=== PATIENT | male | born 1955 | race Caucasian/White ===

== ENCOUNTER 2018-04-21 21:56 | Inpatient (IN) ==
[2018-04-21 22:15] LABS: BASO# 0.02 X1000 (0.0-0.2); BASO% 0.3 % (0.0-0.8); EOS# 0.05 X1000 (0.0-0.7); EOS% 0.6 % (0.0-10.0); HEMATOCRIT 32.3 % (42.0-52.0); HEMOGLOBIN 10.3 g/dL (14.0-18.0); IMM GRAN# 0.01 X1000 (0.0-0.04); IMM GRAN% 0.1 % (0.0-0.5); LYMPH# 1.29 X1000 (1.2-3.4); LYMPH% 16.3 % (20.5-51.1); MCH 24.5 PG (27-31); MCHC 31.9 g/dL (33-37); MCV 76.9 FL (81-99); MONO# 0.62 X1000 (0.11-0.59); MONO% 7.8 % (1.7-9.3); MPV 9.1 FL (7.4-10.4); NEUT# 5.93 X1000 (1.4-6.5); NEUT% 74.9 % (42.2-75.2); PLT 321 X1000 (130-400); WBC 7.92 X1000 (4.8-10.8)
[2018-04-21 22:26] LABS: INR 1.01; PROTIME 13.8 Seconds (11.0-16.0)
[2018-04-21 22:27] LABS: PTT 39.5 Seconds (22.3-41.8)
[2018-04-21] MEDS ORDERED: G.I. COCKTAIL PO ONE (22:38)
[2018-04-21 22:43] LABS: AGAP 12; ALBUMIN 3.1 g/dL (3.5-5.0); ALKALINE PHOSPHATASE 89 U/L (32-122); BUN 8 mg/dL (8-22); CALCIUM 8.9 mg/dL (8.8-10.2); CHLORIDE 94 mmol/L (98-107); CK PROFILE 75 U/L (24-204); COSMO 273; CREATININE 1.1 mg/dL (0.7-1.2); ESTIMATED GFR > 60; GLUCOSE 140 mg/dL (70-104); GOT 11 U/L (10-34); GPT < 5 U/L (10-44); POTASSIUM 2.7 mmol/L (3.5-5.1); SODIUM 136 mmol/L (136-145); TCO2 31 mmol/L (25-35); TOTAL PROTEIN 8.5 g/dL (6.3-8.3)
[2018-04-21] MEDS ORDERED: MORPHINE IV ONE (23:06)
[2018-04-21] MEDS ORDERED: ZOFRAN IV ONE (23:06)
[2018-04-21] MEDS ORDERED: POTASSIUM CHLORIDE 20 MEQ/SWI 20 MEQ/100 ML IVPB IV ONE (23:09)
[2018-04-21] MEDS ORDERED: LR 1,000 ML ONE (23:27)
[2018-04-21] MEDS ORDERED: LR 250 ML IV ONE (23:27)
[2018-04-22] MEDS ORDERED: LOPRESSOR PO ONE (01:45)
[2018-04-22] MEDS ORDERED: TYLENOL PO PRN ×2 (01:56→15:25)
[2018-04-22] MEDS ORDERED: ZOFRAN IV PRN ×2 (01:56→15:26)
--- NOTE | 2018-04-22 01:56 | PROVIDER DOCUMENTATION ---
This chart was entered by Marie Uribe Scribe, acting as scribe for Socrates Mcnulty MD. HPI-Abdominal Pain/GI Problem - General Chief Complaint: Chest Pain Stated Complaint: chest pain Time Seen by Provider: 04/21/18 22:17 Source: patient Allergies/Adverse Reactions: Patient Allergies Allergy/AdvReac Type Severity Reaction Status Date / Time zolpidem tartrate * Allergy Intermediate "makes him Verified 04/21/18 22:00 [From Kory] shai" hydrocodone Allergy Unknown ITCHING Verified 04/21/18 22:00 Home Medications: Home Medication List Medication Instructions Recorded Confirmed Last Taken Type Allopurinol 150 mg PO DAILY 02/12/13 04/22/18 Unknown History Pantoprazole Sodium [Protonix] 40 mg PO DAILY 02/12/13 04/22/18 Unknown History Carvedilol 6.25 mg PO BID 01/23/18 04/22/18 Unknown History LISINOpril [Prinivil] 10 mg PO DAILY 01/23/18 04/22/18 Unknown History Sertraline HCl 100 mg PO DAILY 01/23/18 04/22/18 Unknown History PRAVAstatin [Pravachol] 80 mg PO QHS 04/22/18 04/22/18 Unknown History Trazodone HCl 75 mg PO QHS 04/22/18 04/22/18 Unknown History - History of Present Illness-ABD Nature of Presenting Problems: Pt is 62/m presenting to ED w/ substernal c/p this started this evening. Pt has hx of esophogeal spasm Severity in ED: reports: moderate Onset/Duration: reports: 4-6 hours ago Timing: reports: still present Review of Systems - Adult - REVIEW OF SYSTEMS - ADULT Constitutional: reports: no symptoms reported Eyes: reports: no symptoms reported Ears, Nose, Mouth & Throat: reports: no symptoms reported Cardiovascular: reports: chest pain Respiratory: reports: no symptoms reported Gastrointestinal: reports: no symptoms reported Genitourinary: reports: no symptoms reported Musculoskeletal: reports: no symptoms reported Integumentary: reports: no symptoms reported Neurological: reports: no symptoms reported Psychiatric: reports: no symptoms reported Endocrine: reports: no symptoms reported Hematologic/Lymphatic: reports: no symptoms reported Allergic/Immunologic: reports: no symptoms reported All Other Systems: Reviewed and Negative Past History - Adult - PAST MEDICAL HISTORY-ADULT Review of Records: reports: Nursing Assessment Review Major Childhood Illnesses: reports: denies history Cardiovascular: reports: denies history Respiratory: reports: denies history Gastrointestinal: reports: denies history Obstetrical/Gynecological: reports: denies history Genitourinary: reports: denies history Musculoskeletal: reports: denies history Neurological: reports: denies history Endocrine/Immune: reports: denies history Other Conditions: reports: denies history - PRIOR SURGERIES/PROCEDURES Surgical/Procedure History: reports: CABG - IMMUNIZATION STATUS Childhood Immunizations: See Nurse Assessment Flu Vaccine: See Nurse Assessment - FAMILY HISTORY Family History: reviewed, not pertinent Physical Exam-General - PHYSICAL EXAM-ADULT Initial Vital Signs Reviewed: Yes - CONSTITUTIONAL General Appearance: alert, moderate distress, other (frail) - EYES Eyes: PERRL/EOMI, pink conjunctivae - HEAD, EARS, NOSE, MOUTH & THROAT HENMT: normocephalic/atraumatic, moist mucous membranes - NECK Neck: non-tender, full range of motion - RESPIRATORY Respiratory: lungs clear, decreased breath sounds. negative: rhonchi, wheezing - CARDIOVASCULAR Cardiovascular: normal peripheral pulses, regular rate, rhythm - GASTROINTESTINAL (ABDOMEN) Abdominal Exam: normal bowel sounds, non tender, soft - MUSCULOSKELETAL Extremity: normal range of motion, non-tender - SKIN Integumentary: normal color, normal turgor - NEUROLOGIC Neurologic: grossly normal, no motor/sensory deficits - PSYCHIATRIC Psych/Mental Status: oriented x 3 Progress - PLAN OF CARE/RESULTS Progress/Plan/Lab Results: Vital Signs - 8 hr 04/21/18 21:56 Temperature 98.0 F Pulse Rate 84 Respiratory Rate 22 Blood Pressure 193/105 O2 Sat by Pulse Oximetry 99 Laboratory Results - last 24 hr 04/21/18 04/21/18 04/21/18 22:00 22:00 22:00 WBC 7.92 RBC 4.20 L Hgb 10.3 L Hct 32.3 L MCV 76.9 L MCH 24.5 L MCHC 31.9 L RDW Std Deviation 14.0 Plt Count 321 MPV 9.1 Immature Gran % (Auto) 0.1 Neut % (Auto) 74.9 Lymph % (Auto) 16.3 L Mcmullen % (Auto) 7.8 Eos % (Auto) 0.6 Baso % (Auto) 0.3 Immature Gran # (Auto) 0.01 Neut # (Auto) 5.93 Lymph # (Auto) 1.29 Mcmullen # (Auto) 0.62 H Eos # (Auto) 0.05 Baso # (Auto) 0.02 PT 13.8 INR 1.01 PTT (Actin FS) 39.5 Troponin T < 0.010 Orders Category Date Time Status Cardiac Monitoring DIRECTED Care 04/21/18 22:01 Active Oxygen Therapy- ED Nursing DIRECTED Care 04/21/18 22:01 Active Saline Loc NOW Care 04/21/18 22:01 Active CHEST-2 VIEWS [RAD] Stat Exams 04/21/18 22:01 Ordered CBC WITH ELECTRONIC DIFF [HEME] Stat Lab 04/21/18 22:00 Completed CK PROFILE [SP CHEM] Stat Lab 04/21/18 22:00 Received COMPREHENSIVE METABOLIC PANEL [CHEM] Stat Lab 04/21/18 22:00 Received PRO B-NATRIURETIC PEPTIDE Stat Lab 04/21/18 22:00 Received PROTIME WITH INR [COAG] Stat Lab 04/21/18 22:00 Completed PTT [COAG] Stat Lab 04/21/18 22:00 Completed TROPONIN T Stat Lab 04/21/18 22:00 Completed CP/SOB/Palp >45 yrs of Age Stat Oth 04/21/18 22:01 Ordered EKG [EKG] Stat Ther 04/21/18 21:57 Ordered Result Diagrams: 04/21/18 22:00 04/21/18 22:00 - REASSESSMENT Reassessment #1 Time Reassessed: 01:47 Status: other (patient still with some chest pain , even though it has decreased; Heart score: 5; patient have CT angiogram of chest) - EKG 1 Time of EKG reading by physician:: 22:00 EKG Read and Signed by:: Joesph Sultana EKG Interpretation (*Must complete 3 of following elements*): Abnormal (normal sinus rhythm, possible left atrial enlargement, Left anterior fascicular block, Left ventricular hypertrophy, Abnormal ECG) Rate: 79 Rhythm: sinus rhythm Umbarger: normal QRS: normal NE Interval: normal - CT/MRI 1 CT Study: Angiogram Impression: Abnormal Comparison with other Films: no prior study (No pulmonary embolism. 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 Correlation to MRI of the thoracuc spine with and without IV contrast is recommended. Mild to moderate sized hiatal hernia) - CONSULTS/PCP/HOSPITALIST Notification #1 *Consult/PCP/Hospitalist*: Dr. Ma Time Discussed: 01:55 Consult Disposition: Admit Departure - Departure Date of Disposition Decision: 04/22/18 Time of Disposition Decision: 01:56 DIAGNOSIS: Hypokalemia Chest pain Qualifiers: Chest pain type: unspecified Qualified Code(s): R07.9 - Chest pain, unspecified Disposition: ADMITTED INPATIENT 09 Certified Medical Emergency: Emergent Condition: Fair - Critical Care Note This patient required my direct & personal management of CC.: No Attestation - Physician/ CLOVER Attestation Patient care was provided by Advanced Practice Provider:: No The physician spent face to face time with patient:: Yes Advanced Practice Provider documentation review:: Supervising physician onsite and consulted in the evaluation and care of this patient. The physician did have a face to face encounter with the patient. This chart was documented by the indicated scribe, (Marie Uribe, Scribe) and accurately reflects the services I performed and decisions made by , Socrates Mcnulty MD, as attested by the provider's signature.
[2018-04-22] MEDS ORDERED: SOLU-MEDROL IV ONE (03:44)
[2018-04-22] MEDS ORDERED: VANCOMYCIN IV PER PHARMACY MISC SCH ×2 (04:00→15:30)
[2018-04-22] MEDS ORDERED: VANCOMYCIN 1 GM/NS 1 GM/250 ML IVPB IV ONE (04:00)
[2018-04-22] MEDS: PERCOCET-5 PO PRN ×4 (04:11→21:34)
--- NOTE | 2018-04-22 07:37 | Diag Imaging Result Doc PS360 ---
EXAM: CHEST-PORTABLE 04/21/2018 HISTORY: shortness of breath TECHNIQUE: Erect AP portable at 2317 COMMENT: There is no evidence of acute cardiac or pulmonary disease. Considering differences in inspiration and technique there has been no significant change since 01/23/2018. IMPRESSION: No acute disease. Electronically signed by Barry Elam 04/22/2018 7:35 AM
[2018-04-22] MEDS ORDERED: VANCOMYCIN 750 MG in NS 150 ML IV ONE (08:00)
--- NOTE | 2018-04-22 08:29 | EKG Report ---
Test Performed on : 04/21/2018 10:00:16 PM Test Reason : Chest Pain Blood Pressure : / mmHG Vent. Rate : 079 BPM Atrial Rate : 079 BPM P-R Int : 140 ms QRS Dur : 110 ms QT Int : 416 ms P-R-T Axes : 073 -63 040 degrees QTc Int : 477 ms Normal sinus rhythm. Possible Left atrial enlargement Left anterior fascicular block Left ventricular hypertrophy Abnormal ECG When compared with ECG of 23-JAN-2018 17:35, No significant change was found Unconfirmed Result
[2018-04-22] MEDS ORDERED: PROTONIX PO SCH (09:00)
[2018-04-22] MEDS ORDERED: ZYLOPRIM PO SCH (09:00)
[2018-04-22] MEDS ORDERED: COREG PO SCH (09:00)
[2018-04-22] MEDS ORDERED: PRINIVIL PO SCH (09:00)
[2018-04-22] MEDS ORDERED: ZOLOFT PO SCH (09:00)
--- NOTE | 2018-04-22 12:01 | Diag Imaging Result Doc PS360 ---
EXAM: TEMPORARY 04/22/2018 HISTORY: Chest pain TECHNIQUE: CT pulmonary angiogram with 3-D MIPS COMMENT: There are no filling defects in the pulmonary arteries. There is no evidence of aortic dissection or aneurysm. There is a hiatal hernia. There is some mucosal thickening present in the distal esophagus and an air-fluid level is present in the mid esophagus. There is thickening of the esophagus and paraesophageal fat infiltration in the area of the superior mediastinum. The abnormal soft tissue density extends on both sides of the upper thoracic spine to about the level of the aortic arch. There is ill-defined sclerosis in the vertebral bodies of T2 and T3 and to some extent T4. There are is some erosion of the lower endplate of T2 particularly on the left side. There is bridging osteophyte formation at L3-4. 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 There is a linear opacity in both lower lobes consistent with atelectasis or fibrosis. There is increased interstitial markings in both apices there is a noncalcified pulmonary nodule in the right upper lobe on image 50 measuring almost 9 mm in diameter. There is a 19 mm aorticopulmonary window node and a precarinal node measuring over 18 mm in diameter. Several paratracheal nodes are present. There is an old fracture of the left fifth rib there are degenerative changes in the shoulders bilaterally. IMPRESSION: 1. Apparent discitis at T2-3 with paravertebral inflammatory changes. This may affect the adjacent esophagus. Alternatively, the possibility of neoplastic disease in the esophagus extending into the paravertebral spaces and upper thoracic spine cannot be excluded. Endoscopic evaluation of the esophagus is recommended. The possibility of osteomyelitis or epidural abscess cannot be excluded on the basis of this study and further evaluation with MRI may be desirable. 2. Interstitial opacity in both upper lung zones which may be related to pleural involvement with the above process. 3. Noncalcified pulmonary nodule in the right upper lobe. 4. Hiatal hernia. Electronically signed by Barry Elam 04/22/2018 11:59 AM
--- NOTE | 2018-04-22 14:04 | HISTORY AND PHYSICAL ---
CHIEF COMPLAINT: Esophageal spasms and substernal chest pain. HISTORY OF PRESENT ILLNESS: This is a 62-year-old gentleman with a history of hypertension, coronary artery disease, alcohol use and abuse, Luis esophagus and esophageal varices. He presents to the emergency room complaining of about 6 hours of esophageal spasm and pain. He states pain is in his epigastric area to about midsternum. He states that this is chronic. He has this pain daily although prior to coming to the emergency room it was "stronger than it has been in a while." He denied any nausea, vomiting, any black or bloody vomitus or stools, any syncope, dizziness, palpitations. PAST MEDICAL HISTORY: 1. Hypertension. 2. CAD status post coronary artery bypass graft with subsequent stents. 3. Alcohol use and abuse. 4. High cholesterol. 5. Luis esophagus. 6. Esophageal varices. PAST SURGICAL HISTORY: Coronary artery bypass graft. SOCIAL HISTORY: He does drink whiskey daily. He smokes about a half pack of cigarettes a day. He denies any illicit drug use. ALLERGIES: Ambien which makes him crazy and hydrocodone which causes itching. HOME MEDICATIONS: 1. Trazodone 50 mg p.o. at bedtime. 2. Zoloft 100 mg p.o. daily. 3. Pantoprazole 40 mg p.o. daily. 4. Lisinopril 10 mg p.o. daily. 5. Carvedilol 6.25 mg b.i.d. REVIEW OF SYSTEMS: Discussed with the patient with pertinent positives stated in the HPI. He denied any syncope, dizziness, any chest pain, palpitations, any nausea, vomiting, diarrhea, constipation, any black or bloody vomitus or stools, any hematuria, dysuria, frequency, or urgency. PHYSICAL EXAMINATION: GENERAL: This is a 62-year-old gentleman who is lying in the bed in no distress. VITAL SIGNS: Blood pressure is 169/80 with a heart rate of 52, respirations are 18, temperature is 97.7 degrees oral with O2 saturations of 100% on 2 L nasal cannula. HEENT: Pupils are equal, round, react to light. EOMs are intact. Sclerae are anicteric. Head is normocephalic, atraumatic. Mucous membranes are moist. NECK: Supple with trachea midline. CARDIOVASCULAR: Regular rate and rhythm. S1 and S2 are appreciated. No murmurs. Calves are nontender to palpation. He has peripheral pulses palpable x4 extremities. PULMONARY: Breath sounds are decreased throughout. Chest rises and falls symmetric with respiration. Chest wall is nontender to palpation. GASTROINTESTINAL: Abdomen soft, nontender, nondistended with bowel sounds in all 4 quadrants. SKIN: Warm and dry with normal turgor. NEUROLOGIC: He is alert and oriented x3. LABS: WBC is 7.9 with a hemoglobin of 10.3, hematocrit 32.3, platelets of 321,000. INR is 1.01 with a D-dimer of 2.17. Sodium is 136, potassium 2.7, BUN 8, creatinine 1.1 with a glucose of 140. Troponin was negative. Chest x-ray revealed no acute disease. CTA pulmonary is pending. ASSESSMENT: This is a 62-year-old gentleman who is lying in the bed with family members present in no distress. 1. Esophageal pain. 2. Coronary artery disease status post coronary artery bypass graft with subsequent stents. 3. Elevated cholesterol. 4. Alcohol use and abuse. 5. History of esophageal varices. 6. Hypokalemia. 7. Elevated D-dimer. PLAN: The patient has been admitted to the medical-surgical floor and placed on telemetry which will continue. healthy heart diet. identify his home medications and continue these as is appropriate. Will repeat a potassium and trend electrolytes replete as is appropriate. Bilateral lower extremity doppler. Further treatments pending hospital course. Dictated by ALYCIA Catherine for Shaun Ma MD This chart was documented by, ALYCIA Catherine and accurately reflects the services performed, treatment plan and medical decisions as attested by the providers signature Shaun Ma MD. cc: ALYCIA Catherine MD MTDD
[2018-04-22] MEDS ORDERED: PERCOCET-5 PO PRN (15:26)
[2018-04-22] MEDS: PROTONIX IV SCH (15:54)
[2018-04-22] MEDS ORDERED: DESYREL PO SCH (21:00)
[2018-04-22] MEDS: DESYREL PO SCH (23:18)
[2018-04-22] MEDS: CARAFATE LIQUID PO SCH (23:18)
[2018-04-22] MEDS: COREG PO SCH (23:19)
[2018-04-22] MEDS: VANCOMYCIN 1,250 MG in NS 250 ML IV SCH (23:21)
--- NOTE | 2018-04-22 23:31 | HISTORY AND PHYSICAL ---
ADDENDUM: Patient seen and examined by myself. Full note dictated and discussed with nurse practitioner. Patient presented to the hospital with chest pain although notes that his pain is better. He does have an elevated D-dimer, but CT was negative for pulmonary emboli. Blood pressures are elevated. Patient unfortunately has a long history of alcoholism. CT is abnormal. Certainly appears as though he could have cancer causing his current symptoms. We will continue to follow. I have reviewed the CT scan with Radiology. We will attempt to transfer him to [facility] for upper endoscopy. cc: Shaun Ma MD
--- NOTE | 2018-04-22 23:41 | GASTROENTEROLOGY CONSULTATION ---
DATE: 04/22/2018 REQUESTING PHYSICIAN: Dr. Ma. REASON FOR CONSULTATION: Esophageal spasm. HISTORY OF PRESENT ILLNESS: Mr. Shannon is a 62-year-old male who was admitted on 04/22/2018 for substernal chest pain. He has history of reflux disease since . He has history of Luis esophagus diagnosed in the late . His last EGD was done a couple of years ago at [facility]. According to the patient and patient's family, he was told that the esophagus looked good. At that time, he also required cholecystectomy at [facility]. The patient during this admission had imaging done in the form of CTA which showed possibility of mucosal thickening in the distal esophagus and an air-fluid level present in the mid esophagus. There was evidence of thickening of the esophagus and paraesophageal fat infiltration in the area of superior mediastinum. In the CT scan report, there was evidence of ill-defined sclerosis in the vertebral bodies of T2 and T3 and to some extent T4. 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 He also was noted to have an interstitial opacity in both upper lung zones which may be related to pleural involvement with the above process. There was evidence of noncalcified pulmonary nodule in the right upper lobe and a hiatal hernia. Gastroenterology was consulted for further management. PAST MEDICAL HISTORY: 1. Hypertension. 2. Reflux disease. 3. Luis esophagus. Esophageal varices. 4. History of alcohol abuse. He quit about 4 weeks ago. 5. History of coronary artery disease, status post CABG with subsequent stent. 6. Hiatal hernia. 7. High cholesterol. PAST SURGICAL HISTORY: 1. Coronary artery bypass graft. 2. Cholecystectomy. 3. EGDs. 4. Colonoscopy. SOCIAL HISTORY: He drinks whiskey daily. His last intake was 4 weeks ago. He smokes half a pack of cigarettes a day. He denies illicit drug abuse. ALLERGIES: Zolpidem and hydrocodone. MEDICATIONS: Medications in the hospital include trazodone, sucralfate, Tylenol, allopurinol, Coreg, Lovenox, lisinopril, multivitamin, Zofran, oxycodone/acetaminophen, Protonix b.i.d., vancomycin per pharmacy, sertraline, potassium chloride, and Ringer's lactate. DIET: He is on a heart healthy diet. REVIEW OF SYSTEMS: Denies any fevers, rigors, chills. Does have some substernal chest pain. He denies any shortness of breath. He also denies any nausea, vomiting, vomiting blood, or passing blood in the stools. Denies any dysphagia. He does complain of reflux which is chronic for him. He takes Protonix at home. He denies any blood in the stools. He complains of numbness in the lower extremities that is being worked up. PHYSICAL EXAMINATION: Vital signs: Temperature of 97.7 degrees, pulse rate 52, respiratory 16, blood pressure 169/80, saturating 98% on 2 L nasal cannula. Body weight of 141 pounds 11.2 ounces. BMI of 28 kg. General appearance: Moderately built, moderately nourished, lying in bed in no acute distress. HEENT: Pale conjunctivae. No icterus. Pupils equal, react to light. Neck: Supple. Abdomen: Soft, nontender, nondistended. No guarding or rebound. Extremities: No cyanosis or clubbing. Neurologic: He is alert, awake, oriented. LABORATORIES: Hemoglobin is 10.3, hematocrit 32.3, white count of 7.92, platelet count of 321,000. INR 1.01, PT of 13.8, PTT of 39.5. Sodium of 134, potassium 2.7, chloride 94, bicarb 31, anion gap of 12, BUN of 8, creatinine 1.1, glucose of 140. Calcium is 8.9. Total bilirubin is 0.3, AST 11, ALT less than 5, alkaline phosphatase 89, total protein is 8.5, albumin of 3.1. Plasma alcohol level on admission was 0. IMAGING: As described in HPI. He had a pulmonary arteriogram. His chest x-ray on 04/21 showed no acute disease. IMPRESSION AND PLAN: 1. Abdominal CT scan with the possibility of esophagitis and hiatal hernia, and we need to rule out neoplastic process. 2. Coronary artery disease, status post coronary artery bypass graft and subsequent stents. 3. Alcohol abuse. He quit about 4 weeks ago. 4. History of Luis esophagus. Questionable history of esophageal varices. 5. Hypokalemia. 6. Anemia. RECOMMENDATIONS: 1. We will continue the patient on Protonix b.i.d. We will start him on Carafate 1 g q.6 hours. We will start him on multivitamin once daily. 2. He will continue to be closely watched. We will schedule him for EGD on Tuesday under anesthesia. The risks, benefits, indications, and alternatives to the procedure were discussed with the patient and family at bedside. All questions answered. Further recommendations to follow. cc: MD Shaun Umana MD
[2018-04-23] MEDS ORDERED: VANCOMYCIN 1,250 MG in NS 250 ML IV SCH ×2
[2018-04-23] MEDS: PERCOCET-5 PO PRN ×4 (03:40→22:18)
[2018-04-23] MEDS: CARAFATE LIQUID PO SCH ×4 (05:37→20:04)
[2018-04-23] MEDS: SODIUM CHLORIDE 0.9% INJ SCH ×2 (05:41→17:12)
[2018-04-23] MEDS: PROTONIX IV SCH ×2 (05:42→17:12)
[2018-04-23] MEDS ORDERED: PROTONIX PO SCH (07:00)
[2018-04-23] MEDS: PRINIVIL PO SCH (08:24)
[2018-04-23] MEDS: ZOLOFT PO SCH (08:25)
[2018-04-23] MEDS: COREG PO SCH ×2 (08:25→22:18)
[2018-04-23] MEDS: CENTRUM SILVER PO SCH (08:25)
[2018-04-23] MEDS: ZYLOPRIM PO SCH (08:25)
[2018-04-23] MEDS ORDERED: LOVENOX SUBQ SCH ×2 (09:00)
[2018-04-23 09:06] LABS: BASO# 0.02 X1000 (0.0-0.2); BASO% 0.2 % (0.0-0.8); EOS# 0.03 X1000 (0.0-0.7); EOS% 0.3 % (0.0-10.0); HEMATOCRIT 34.5 % (42.0-52.0); HEMOGLOBIN 10.6 g/dL (14.0-18.0); LYMPH# 1.54 X1000 (1.2-3.4); LYMPH% 17.4 % (20.5-51.1); MCH 24.1 PG (27-31); MCHC 30.7 g/dL (33-37); MCV 78.6 FL (81-99); MONO# 0.71 X1000 (0.11-0.59); MPV 9.5 FL (7.4-10.4); NEUT# 6.54 X1000 (1.4-6.5); NEUT% 74.1 % (42.2-75.2); PLT 325 X1000 (130-400); RBC 4.39 XMIL (4.7-6.1); WBC 8.84 X1000 (4.8-10.8)
[2018-04-23 09:27] LABS: AGAP 13; ALB/GLOB RATIO 0.6; ALBUMIN 3.3 g/dL (3.5-5.0); ALKALINE PHOSPHATASE 91 U/L (32-122); BUN 12 mg/dL (8-22); CALCIUM 8.7 mg/dL (8.8-10.2); CHLORIDE 96 mmol/L (98-107); COSMO 281; ESTIMATED GFR > 60; GLUCOSE 95 mg/dL (70-104); GOT 11 U/L (10-34); GPT 5 U/L (10-44); POTASSIUM 2.8 mmol/L (3.5-5.1); SODIUM 141 mmol/L (136-145); TCO2 32 mmol/L (25-35); TOTAL BILIRUBIN 0.22 mg/dL (0.20-1.00); TOTAL PROTEIN 8.6 g/dL (6.3-8.3)
--- NOTE | 2018-04-23 10:00 | PROGRESS NOTE ---
DATE: 04/23/2018 SUBJECTIVE: The patient is resting comfortably in bed. He has been having generalized weakness and generalized muscle pain. As per the patient, this is not new. He has been having pain and muscle weakness for years. Apparently, he fell last Tuesday or and after that, he has not been able to walk. Upon examination, there is some loss of sensation mostly on the left foot. Muscle tone is fine, but he cannot move his toes much. The reflexes are decreased. He has been complaining of constipation. I will put him on MiraLAX twice a day. As per the patient, he has not moved his bowels for 6 days or so. OBJECTIVE: Vital Signs: Temperature 97.5 degrees, pulse 54, respiratory rate 18, blood pressure 154/71, oxygen saturation 99 on 2 L of nasal cannula. HEENT: Head normocephalic. No trauma. PERRLA. Neck: Supple. No JVD. No masses. Central trachea. Chest: Decreased breath sounds at the bases. Otherwise, clear to auscultation. No wheezing. No rales. Abdomen: Soft. Mildly distended, but positive bowel sounds. Extremities: No edema. No clubbing. No cyanosis. Neurological: The patient is alert. He is oriented x3. He is following commands, but he does have generalized weakness, especially at the level of the lower extremities. It looks like the reflexes are a little bit decreased at the level of the lower extremities, especially knee reflex and ankle reflex. Sensation is decreased on his feet, especially on the left side. Upper extremity strength 3 to 4/5, lower extremity strength 1/5. LABORATORY: WBC 8.4, hemoglobin 10.6, hematocrit 34.5, platelets 325,000. Pending BMP. ASSESSMENT AND PLAN: 1. Chest pain. Apparently, he has been having chest pain on and off, sharp, I do not think it is related to any cardiac condition at this moment. Pulmonary arteriogram done showed paravertebral inflammatory changes that may effect the adjacent esophagus. There is a possibility of neoplastic disease in the esophagus extending into the paravertebral spaces and upper thoracic spine and cannot be excluded. Endoscopic evaluation of the esophagus has been recommended and will be done tomorrow. There is a possibility of osteomyelitis or epidural abscess. He has been placed on vancomycin. No fever no chills. Leukocyte count is normal today. Likely we will need to do an MRI, but I want Neurology Department to evaluate this patient first. 2. History of coronary artery disease, status post CABG, with subsequent stents. Aware. Troponin has been negative. He is not complaining of pressure-like chest pain or any typical chest pain. We will monitor for now. 3. Chronic alcohol use and abuse. As per the , he stopped drinking around 3 weeks ago. We will monitor this patient closely for withdrawal symptoms. 4. History of esophageal varices. Aware. 5. Hypokalemia. Pending lab work today. 6. Elevated D-dimer. CT angiogram of the chest did not show any pulmonary embolism. Pending Doppler venous ultrasound of the lower extremities. 7. Generalized weakness. The etiology is uncertain to me. This could be likely related to alcohol abuse and neuropathy. I had an extremely large conversation with his by phone. She states that most of his family, including mom, brothers and uncles have been having neuromuscular problems and they all end up with lower extremity weakness and basically not walking. This could be a hereditary condition. Again, I will ask Cardiology Department to evaluate this patient, but probably is a combination of problems, including alcohol abuse and neuromuscular disease. Probably we need to do an MRI of the spine as well, but I will ask Neurology Department to evaluate this patient first. 8. We discussed his resuscitation status and he decided to be Do Not Resuscitate Level 1. cc: Catalino Charles MD
[2018-04-23] MEDS: MIRALAX PO SCH ×2 (10:44→22:17)
[2018-04-23] MEDS: MORPHINE IV PRN ×2 (14:38→19:51)
[2018-04-23] MEDS ORDERED: KLOR-CON PO ONE (17:17)
--- NOTE | 2018-04-23 17:20 | GASTROENTEROLOGY PROGRESS NOTE ---
DATE: 04/23/2018 SUBJECTIVE: Patient resting in bed. Her family present is at bedside. The patient complains of some chest discomfort. He has history of reflux and esophageal spasms. OBJECTIVE: Vitals: Temperature 98 degrees, pulse rate of 58, respiratory rate of 20, blood pressure 140/75, saturating 100% on 2 L nasal cannula. General Appearance: Moderately built, well-nourished, lying in bed, in no acute distress. HEENT: Pale conjunctiva. No icterus. Neck: Supple. Abdomen: Soft, nontender, nondistended. No guarding or rebound. Extremities: No cyanosis, clubbing. Neurological: Alert, awake, oriented x3. LABORATORY DATA: Hemoglobin 10.6, hematocrit 34.4, white count of 8.4, platelet count 325,000. Sodium 141, potassium 2.8, chloride 96, bicarbonate 30, anion gap 13, BUN of 12, creatinine 1, glucose of 95, calcium 8.7, total bilirubin is 0.22, AST 11, ALT 5, alkaline phosphatase 91, total protein is 8.6, albumin of 3.3. IMPRESSION AND PLAN: 1. Chest pain. This is being worked up by the primary care team. 2. History of coronary artery disease status post coronary artery bypass grafting (CABG) with subsequent stents. Aware. His troponins have been negative. 3. Abnormal CT scan, which showed a possibility of a lesion in the distal esophagus and mucosal thickening in the distal esophagus. We have scheduled him for EGD tomorrow. The risks, benefits, indications, and alternatives to the procedure have been discussed with the patient and the family, and all questions were answered. 4. Luis's esophagus, which he has a diagnosis of since . We will check with EGD tomorrow. 5. History of alcohol abuse. He had quit more than 3 weeks ago. We will continue on multivitamin. 6. Bowel regimen with MiraLAX twice daily. 7. Pain control with oxycodone. 8. We will continue on thiamine/B1 once daily, as he has a prior history of alcoholism. We will also give him a multivitamin once daily. 9. Anemia. Continue to watch for now. If the esophagogastroduodenoscopy is negative, he may need a colonoscopy. The above plans were discussed with the patient and family, and all questions were answered. Please call us with any further questions. cc: MD Catalino Umana MD [facility]
[2018-04-23] MEDS: VANCOMYCIN 1,250 MG in NS 250 ML IV SCH (20:21)
[2018-04-23] MEDS: DESYREL PO SCH (22:17)
[2018-04-24] MEDS: PERCOCET-5 PO PRN ×4 (05:06→19:44)
[2018-04-24] MEDS: SODIUM CHLORIDE 0.9% INJ SCH ×2 (05:06→17:56)
[2018-04-24] MEDS: PROTONIX IV SCH ×2 (05:06→17:56)
[2018-04-24] MEDS: CARAFATE LIQUID PO SCH ×4 (05:31→20:36)
[2018-04-24 07:27] LABS: BASO# 0.01 X1000 (0.0-0.2); BASO% 0.1 % (0.0-0.8); EOS# 0.05 X1000 (0.0-0.7); EOS% 0.7 % (0.0-10.0); HEMATOCRIT 32.1 % (42.0-52.0); HEMOGLOBIN 9.6 g/dL (14.0-18.0); LYMPH# 1.31 X1000 (1.2-3.4); LYMPH% 19.3 % (20.5-51.1); MCH 23.8 PG (27-31); MCHC 29.9 g/dL (33-37); MCV 79.7 FL (81-99); MONO% 10.3 % (1.7-9.3); MPV 9.9 FL (7.4-10.4); NEUT# 4.71 X1000 (1.4-6.5); NEUT% 69.6 % (42.2-75.2); PLT 263 X1000 (130-400); RBC 4.03 XMIL (4.7-6.1); WBC 6.78 X1000 (4.8-10.8)
[2018-04-24 07:57] LABS: AGAP 10; ALB/GLOB RATIO 0.6; ALBUMIN 2.8 g/dL (3.5-5.0); ALKALINE PHOSPHATASE 77 U/L (32-122); BUN 12 mg/dL (8-22); CALCIUM 8.6 mg/dL (8.8-10.2); CHLORIDE 102 mmol/L (98-107); COSMO 286; CREATININE 0.9 mg/dL (0.7-1.2); ESTIMATED GFR > 60; GLUCOSE 95 mg/dL (70-104); GOT 9 U/L (10-34); GPT < 5 U/L (10-44); POTASSIUM 3.5 mmol/L (3.5-5.1); SODIUM 144 mmol/L (136-145); TCO2 32 mmol/L (25-35); TOTAL BILIRUBIN 0.15 mg/dL (0.20-1.00); TOTAL PROTEIN 7.5 g/dL (6.3-8.3)
[2018-04-24] MEDS ORDERED: DIPRIVAN 1% ONE (08:51)
[2018-04-24] MEDS ORDERED: XYLOCAINE-MPF 2% ONE (08:51)
[2018-04-24] MEDS ORDERED: FENTANYL ONE (08:51)
[2018-04-24] MEDS ORDERED: ROBINUL ONE (08:51)
[2018-04-24] MEDS ORDERED: VITAMIN B-1 PO SCH (09:00)
--- NOTE | 2018-04-24 09:10 | PROGRESS NOTE ---
DATE: 04/24/2018 SUBJECTIVE: No big changes compared with yesterday. His chest pain is better controlled. He will have an EGD done today as well as an MRI of the thoracic and lumbar spine. I have requested an evaluation by the Neurology Department. It looks like this patient has a strong family history of neuromuscular problems. On top of that he has been a heavy drinker/alcoholic coma which can be adding some problems to these pathology. He is oriented x3. He cannot move the lower extremities around. We will wait for the MRI and neurology evaluation. OBJECTIVE: Vital Signs: Temperature 98.5 degrees, pulse 59, respiratory rate 12, blood pressure 141/66, oxygen saturation 98 on 2 L of nasal cannula. HEENT: Head normocephalic. No trauma. PERRLA. Neck: Supple. No JVD. No masses. Central trachea. Chest: Decreased breath sounds at the bases. Otherwise, clear to auscultation. No wheezing. No rales. Abdomen: Soft. Mildly distended. Bowel positive bowel sounds. Extremities: No edema. No clubbing. No cyanosis. Neurological: On examination the patient is alert. He is oriented x3. He is following commands. He does have generalized weakness especially at the level of the lower extremities, 1/5 strength. His reflexes are a little bit decreased but the muscle tone is not that bad. Sensation is decreased on his feet, especially on the left side. Upper extremity strength 3-4/5. LABORATORY: WBC 6.7, hemoglobin 9.6, hematocrit 32.1, platelets 263,000, sodium 144, potassium 3.5, chloride 102, bicarbonate 32, BUN 12, creatinine 0.9, glucose 95, calcium 8.6, AST 9, ALT less than 5, alkaline phosphatase 77, albumin 2.8. ASSESSMENT AND PLAN: 1. Chest pain Apparently, he has been having chest pain on and off which is sharp. I do not think it is related to any cardiac condition. Troponins were negative upon admission with a normal sinus rhythm EKG but no ST changes. We have a pulmonary arteriogram done that showed paravertebral inflammatory changes that may affect the adjacent esophagus. There is a possibility of neoplastic disease in the esophagus extending into the paravertebral spaces and upper thoracic spine cannot be cannot be excluded. 2. Today he will have an EGD done by Gastroenterology Department. There is also a possibility of osteomyelitis or epidural abscess. He has been placed on vancomycin. No fever, no chills. Leukocyte count is normal. Pending MRI of the spine, especially thoracic and lumbar. 3. Neurology evaluation. 4. History of coronary artery disease status post coronary artery bypass graft. Continue with the same management. 5. Chronic alcohol use and abuse. As per the , he stopped drinking around 3 weeks ago. We will monitor this patient closely for withdrawal symptoms anyway. 6. History of esophageal viruses, aware. 7. Hypokalemia, resolved. 8. Elevated D-dimer. CT angiogram of the chest did not show any pulmonary embolism. Pending Doppler and venous ultrasound of the lower extremities. 9. Generalized weakness, especially lower extremities. This etiology is uncertain to me so far. This could be related to an alcohol abuse and neuropathy, but also he has a strong family history of neuromuscular disorder. Apparently most of the family stopped walking at some point including mother, brothers, uncles and aunts. I have requested an MRI of the spine and Neurology Department evaluation. This could be a hereditary condition. 10. This patient is DNR level 1. cc: Catalino Charlse MD
--- NOTE | 2018-04-24 10:01 | OPERATIVE NOTE ---
PROCEDURE DATE: 04/24/2018 PROCEDURE PERFORMED: Esophagogastroduodenoscopy with biopsy. PREOPERATIVE DIAGNOSES: 1. Reflux disease. 2. Atypical chest pain. 3. History of Luis's esophagus. 4. Abnormal CT scan with a question of thickening of the distal wall of esophagus. 5. Anemia. 6. History of alcoholism; quit about 3 weeks ago. 7. According to him, the last colonoscopy was done a few years ago at [facility]. POSTOPERATIVE DIAGNOSES: 1. Esophagitis in the distal esophagus, LA grade 1. 2. Z-line visualized at 40 cm. 3. Evidence of hiatal hernia, 2 cm. 4. Z-line is slightly irregular. 5. Evidence of food in the stomach. 6. Erosive gastritis in the body, which was biopsied. 7. Normal fundus, cardia, incisura. 8. Normal duodenal bulb and second portion of the duodenum. ESTIMATED BLOOD LOSS: Minimal. COMPLICATIONS: None. ANESTHESIA: Monitored anesthesia care per the anesthesiologist. SPECIMENS: Gastric random biopsy. DESCRIPTION OF PROCEDURE: After informed consent, the patient was explained the risks, benefits, indications, alternatives of the procedure. The patient was then prepared for EGD, the risks including infection, bleeding, pain, trauma to the surrounding structures, perforation, were explained to the patient, among others, and he acknowledged this, understood, and agreed to proceed with the procedure. The patient was brought to the OR. He was turned in the left lateral position. A bite block was placed. After adequate monitored anesthesia care, the scope was introduced through the oral vestibule, traversed all the way to the second portion of the esophagus. It showed him to have mild erythema suggesting mild esophagitis LA grade 1. Z-line was at 45 cm, slightly irregular. There was evidence of a 2 cm sliding hiatal hernia. The stomach showed evidence of retained food in the body. The rest of the stomach showed evidence of erythema, friability, erosions. This was biopsied. Retroflexion showed normal fundus, cardia, incisura. The duodenal bulb and second portion appeared normal. There was no evidence of fresh or old blood in the entire EGD. The air was withdrawn. The patient tolerated the procedure well, and will be monitored in the OR in stable condition. RECOMMENDATIONS: 1. The patient will be on full liquid diet. Advance as tolerated. 2. The patient will be on Protonix once daily for 3 months, and wean down to Zantac 150 mg p.o. b.i.d. 3. The patient will be on multivitamin and iron C b.i.d. for 3 months. 4. The patient will be on MiraLAX once or twice daily for constipation. 5. If the patient stays anemic, then we may have to do outpatient colonoscopy. He has recent colonoscopy done 2 or 3 years ago at [facility]. 6. The patient had a fall and is having numbness in his legs. This is being worked up by the primary care team. 7. The above plans were discussed with the patient and family, and all questions were answered. Please call with any questions. cc: Mic Ayala MD
[2018-04-24] MEDS: MIRALAX PO SCH ×2 (10:47→20:38)
[2018-04-24] MEDS: ZOLOFT PO SCH (10:48)
[2018-04-24] MEDS: ZYLOPRIM PO SCH (10:48)
[2018-04-24] MEDS: CENTRUM SILVER PO SCH (10:48)
[2018-04-24] MEDS: PRINIVIL PO SCH (10:48)
[2018-04-24] MEDS: COREG PO SCH ×2 (12:17→20:36)
[2018-04-24] MEDS: MORPHINE IV PRN ×2 (12:31→18:31)
--- NOTE | 2018-04-24 12:50 | Diag Imaging Result Doc PS360 ---
EXAM: MRI LUMBAR SPINE W/WO CONTRAST 04/23/2018 HISTORY: Lower extremity weakness, R/O epidural abscess TECHNIQUE: MRI lumbar spine, T2, T1 and STIR sagittal, T1 and T2 axial with post gadolinium-enhanced T1 sagittal and axial. COMMENT: There is marked bone marrow edema present in the T12-L1 vertebral bodies including the posterior bridging osteophyte between the two. This area enhances markedly with gadolinium and there is enhancement in the disc space. This is particularly notable on the left side. There is some disc desiccation at L5-S1. Mild epidural enhancement is present at the level of the T12-L1 disc space but there is no evidence of spinal stenosis or foraminal stenosis. No intrathecal masses or signal abnormalities are present. There is some involvement in the pedicles of L1 bilaterally. IMPRESSION: Abnormal T2 weighted signal intensity and gadolinium enhancement in the T12 and L1 vertebral bodies centered around the disc space. Abnormal enhancement of the disc. This is suggestive of discitis and osteomyelitis. Presumably this is the same process involved in the upper thoracic spine. Electronically signed by Barry Elam 04/24/2018 12:47 PM
--- NOTE | 2018-04-24 13:20 | Diag Imaging Result Doc PS360 ---
EXAM: MRI THORACIC SPINE W/WO CON 04/23/2018 HISTORY: Lower extremity weakness, R/O epidural abscess TECHNIQUE: T1-T2 and STIR sagittal, post gadolinium-enhanced T1 axial and sagittal, T1 and T2 axial. COMMENT: There is accentuated kyphosis. There is decreased T1-weighted signal intensity in the vertebral bodies of T2, T3, and T4. There is increased T2-weighted signal intensity in the T2-3 disc space. Increased T2-weighted signal intensity is seen in the upper endplate of T4 and throughout T2 and T3. There is soft tissue swelling with areas of increased T2-weighted signal intensity on both sides of the spine in this area. Much of this enhances with gadolinium and there is thickening and enhancement of the dura and epidural space with spinal stenosis at the T2-3 disc space level. Unfortunately the axial images do not entirely cover the abnormality. There is also decreased T1 and increased T2-weighted signal intensity on either side of the T12-L1 disc space. There is posterior bridging osteophyte formation at this level. This is probably related to Modic type I change. There is also Modic type II change at T6-7 anteriorly and to lesser extent at T8-9 anteriorly. No other intrathecal or intramedullary signal abnormalities are present. IMPRESSION: Discitis with osteomyelitis and paravertebral abscess centered on the T2-3 disc space, including epidural involvement and spinal stenosis with cord compression. The findings were discussed with Catalino Good MD at 04/24/2018 1:18 PM. Electronically signed by Barry Elam 04/24/2018 1:18 PM
[2018-04-24] MEDS: VANCOMYCIN 1,250 MG in NS 250 ML IV SCH (15:29)
[2018-04-24] MEDS ORDERED: DECADRON 40 MG in NS 50 ML IV STA (15:49)
--- NOTE | 2018-04-24 16:23 | PROGRESS NOTE ---
DATE: 04/24/2018 SUBJECTIVE: I received a call from Radiology Department around 12:45 p.m. today. It looks like this patient has a spinal cord compression. I do not think this is acute, probably this has been going on for at least 3 days. As per the patient, this severe weakness happened the day he came in, on 04/21/2018, but he was complaining of chest pain. He never complained of lower extremity weakness because he has been having lower extremity weakness for a very long time and as per the patient, it has been worse on and off, to the point that he was not walking too much. As per the , who was at the bedside today, said that he has been basically sick all day, sitting on a chair since 2006 and walking with the help of a cane on and off. As per the patient, he has multiple family members with weakness at the level of the lower extremities, to the point that they cannot walk, including his mom, brothers, some uncles, and aunts, at least 6 family members. When I received a call from Radiology Department I immediately called [facility] to talk to Neurosurgery, which I did after sending them all the images. Dr. Braun accepted the patient and asked me to talk to the hospitalist so he can see the patient in [facility]. I received a call from the hospital and talked to the hospitalist around 3:45 p.m. today. I talked to Dr. Guy, who also accepted the patient. Vital signs at this moment are stable as well as lab work. This patient has a medical history of alcohol abuse but as per the patient and the , he stopped drinking 3 weeks ago. No signs of withdrawal at this moment. Like I mentioned before, images were sent to [facility]. I personally described the lesion to the surgeon and the hospitalist. We will wait for a bed and transfer this patient. He has multiple levels with diskitis and osteomyelitis and a cord compression at the level of the thoracic area, specifically T2-T3 space. I explained the whole situation to the family and they agree with transferring this patient to [facility]. I told them that I honestly do not know if he is going to recover completely from this lesion and they seem to understand. cc: Catalino Charles MD
[2018-04-24] MEDS: DESYREL PO SCH (20:37)
[2018-04-24 22:59] VITALS: BP 140/75
[2018-04-25] MEDS ORDERED: VANCOMYCIN 1,250 MG in NS 250 ML IV SCH (03:00)
--- NOTE | 2018-04-25 08:26 | Extremity Venous Study ---
PROCEDURE NAME: Venous U/S Bilateral Legs - 04/22/2018 REQUESTING PHYSICIAN: Dr. Good. TREE FELLER OPERATOR: Harsha. INDICATIONS: Elevated D-dimer. EQUIPMENT: [employer] Vivid E9 ultrasound system with a 9L-D transducer. FINDINGS: Images of the bilateral lower extremity venous systems were obtained in both sagittal and transverse planes. Doppler was used to evaluate veins for spontaneity, phasicity, respiratory excursion, and digital augmentation. RESULTS: Normal venous compression. Normal venous flow. No obvious superficial or deep venous thrombosis noted. INTERPRETATION: Essentially normal bilateral lower extremity venous study. cc: MD Catalino Nguyen MD
--- NOTE | 2018-04-27 15:01 | DISCHARGE SUMMARY ---
ADMISSION DATE: 04/21/2018 DISCHARGE DATE: 04/24/2018 DISCHARGE DIAGNOSES: 1. Chest pain. 2. Diskitis with osteomyelitis and paravertebral abscess centered on the T2-T3 disk space including epidural involvement and spinal stenosis with cord compression, diskitis and osteomyelitis at the level of the T12-L1. 3. History of coronary arterial disease. 4. Chronic alcohol use and abuse. 5. Chronic lower extremity weakness. 6. History of esophageal varices. 7. Hypokalemia/resolved. 8. Elevated D-dimer. 9. Generalized weakness like I mentioned before especially lower extremities. 10. DNR level 1. HOSPITAL COURSE: The patient is a 62-year-old male with a past medical history of hypertension, coronary artery disease, alcohol use and abuse, Luis's esophagus, and esophageal varices, who presented to the emergency department on 04/21/2018 during the night and admitted on 04/16/2018. He presented to the emergency department with about 6 hours of complaint of chest pain. As per the patient, this is likely related to esophageal spasm located in the epigastric area and mid sternal area. As per the patient, this is chronic. He has this kind of pain daily although prior to coming to the emergency room it was stronger than it has been in a while. He denied any nausea or vomiting, black emesis or stools. No syncope. No dizziness. No palpitations. He was admitted at [facility] with a diagnosis of esophageal pain/chest pain, coronary artery disease status post CABG with subsequent stent, elevated cholesterol, alcohol abuse and use, history of esophageal viruses, hypokalemia and elevated D-dimer. He was admitted to the medical surgical floor and placed on telemetry. A healthy diet, monitor the electrolytes, and also was planning to do an extremity Doppler ultrasound. Chest x-ray did not show any acute disease during the admission process. Pulmonary arteriogram showed apparent diskitis at T2 and T3 with paravertebral inflammatory changes. These may affect the adjacent esophagus. Alternatively, the possibility of neoplastic disease in the esophagus extending into the paravertebral spaces and upper thoracic spine cannot be excluded. Endoscopic evaluation of the esophagus is recommended Also, the possibility of osteomyelitis or epidural abscess cannot be excluded, on the basis of the study and further evaluation with MRI may be desirable. Interstitial opacity in both upper lung sounds which may be related to pleural involvement with the above process, noncalcified pulmonary nodule in the right upper lobe. Because of these recommendations, patient has been transferred to [facility] and was evaluated by Gastroenterology Department, who recommended to do an upper endoscopy to rule out a neoplastic process. Then, the patient was evaluated the next day. We noticed that this patient had weakness at the level of the lower extremities around 1/5. We had an extremely large conversation with the patient and also I talked to the by phone. As per the patient, he has been having these kind of problems on and off. Sometimes, he is able to walk with a walker, but most of the time he is sitting up. As per the , this patient has been sitting most of the time since 2006, and he never was trying to seek medical attention. On the other hand, as per the patient and the , most of his family around this age for some reason they stop walking, including his mom, brothers, an aunt and uncles. They do not have a specific reason for that. On the other hand, this patient is a chronic alcoholic. Apparently, he stopped drinking around 3 weeks ago, but as per the , he was drinking every day for a very long time. For some reason, which we do not know, he stopped walking too much in 2006 and basically he was most of the time sitting in a chair. Since this patient had a paravertebral inflammation, I wanted to evaluate his spinal cord. His thoracic spine showed diskitis with osteomyelitis and paravertebral abscess centered on the T2/T3 disk space including epidural involvement and his spinal stenosis with cord compression. Also, at the level of the lumbar area, it showed a T12-L1 diskitis and osteomyelitis that probably is due to the same process involving the upper thoracic spine. This patient denied any fever or chills. This patient does not have elevated white blood cells. He does not look chronically ill, but when I received these results, immediately I called [facility], and I communicated with the neurosurgeon Dr. Braun. I explained to him the whole situation, and he has accepted the patient to be transferred, and then he will see as a consult. Then, I talked to the hospitalist team, which accepted the patient. This patient was getting Protonix. We have been replacing his electrolytes. We gave him treatment with vancomycin. We will monitor this patient with telemetry. Before sending this patient to [facility], we did an upper endoscopy that showed esophagitis in the distal esophagus, LA grade 1. Z-line visualized at 40 cm, evidence of hiatal hernia, 2 cm. The Z-line is slightly irregular. Evidence of food in the stomach, erosive gastritis in the body which was biopsied. Normal fundus. Cardiac and incisura. Normal duodenal bulb and second portion of the duodenum, but they did not see any mass or neoplastic process, but pending cultures though. At the moment of discharge, the patient was in a stable medical condition. Vital signs were stable as well as laboratory. He was slightly anemic. I talked to the patient and the at the same time. I told them about the transfer to [facility], and they agree with this. As per the , he has been falling more than normal lately. Apparently, he fell on 04/21/2018. I explained to them that I am not sure if this patient will recover his lower extremity strength. PHYSICAL EXAMINATION: Strength was around 1/5. He was able to move mostly the right leg, but he was not able to lift the leg from the bed. He was able to move it from side to side a little bit. He was able to feel the sensation at the level of the ankle all the way up to the thigh, but it was really decreased on the left foot. As per the patient, he was feeling it a little bit on the right. I feel he was not feeling it at all in both feet. DISPOSITION: Again, the patient has been transferred to [facility]. I am not sure how long he has been with this spinal cord compression. No history of fever or chills. No nausea, vomiting, diarrhea, or constipation. He basically went to the emergency department for chest pain. Discharge medication will be provided by [facility]. Probably, this patient will need to go to a rehab center. I recommended to him to stop drinking completely even though he has apparently stopped 3 weeks ago. The reason why apparently this patient did not go and buy alcohol is because he was not able to walk. cc: Catalino Charles MD
== END 2018-04-24 23:23 | disposition short-term general hospital (02) | DRG 95 ==
LOC: P.ED 21:56 → SUATTDRO 04-22 02:32 → P.MEDSURG 04-22 02:32 → 4N 04-22 14:25 → DIRADM 04-22 14:26 → UNDODISIN 04-24 23:23
PROVIDERS: ATTEND Family Medicine
CPT/HCPCS: 71010; 71045; 71275; 72157; 72158; 80053; 80202; 80307; 80320; 82055; 82550; 83880; 84484; 85025; 85379; 85610; 85730; 88305; 88312; 93005; 93970; 94761; 96365; 96366; 96375; 99285; A9270; A9579; C9113; G0480; G6040; J1650; J2270; J2405; J2930; J3010; J3370; J3480; J7050; J7120; S0164